=== PATIENT | male | born 1940 | race Caucasian/White ===

== ENCOUNTER 2016-06-20 16:53 | Emergency (ER) | payer OTHER ==
[2016-06-20] MEDS ORDERED: SODIUM CHLORIDE 0.9% 1,000 ML ONE (17:23)
[2016-06-20] MEDS ORDERED: LORAZEPAM 2 MG/ML VIAL ONE ×2 (19:09→19:25)
[2016-06-20] MEDS ORDERED: TDaP 0.5 ML VIAL IM.VACC ONE (19:32)
[2016-06-20] MEDS ORDERED: FOSPHENYTOIN PE IV ONE (19:35)
[2016-06-20] MEDS ORDERED: SODIUM CHLORIDE IV ONE (19:35)
== END 2016-06-20 21:45 | disposition other institution (70) ==
LOC: ER 16:53
DX: R56.9 Unspecified convulsions (principal); Z86.73 Personal history of transient ischemic attack (TIA), and cerebral infarction without residual deficits; J44.1 Chronic obstructive pulmonary disease with (acute) exacerbation; I25.10 Atherosclerotic heart disease of native coronary artery without angina pectoris; Z79.899 Other long term (current) drug therapy; Z79.82 Long term (current) use of aspirin
CPT/HCPCS: 36415; 70450; 71010; 80053; 85025; 85610; 85730; 90471; 93005; 96361; 96374; 96375; 99291; J7050; Q2009